=== PATIENT | female | born 1990 | race Two or more races ===

== ENCOUNTER 2017-03-17 10:21 | Emergency (ER) | payer MEDICAID ==
[~2017-03-17] VITALS: Ht 162.6 cm; Wt 113.4 kg
[~2017-03-17 10:21] MED LIST: CLIN300C11 PO
[2017-03-17] MEDS ORDERED: IBUP-1953 PO (10:33)
[2017-03-17] MEDS ORDERED: METH4TAB17 PO (10:33)
--- NOTE | 2017-03-17 11:29 | NUR ---
Pt c/o losing voice, BENITO, and ear aches, had fever 1 week ago and felt throat "tightening" but was cleared by her MD for infection then. Back today, high pitched voice and crackling. Pt denies dizziness, CP, SOB, n/v, no other complaints, no distress noted.
--- NOTE | 2017-03-17 11:54 | NUR ---
Gave pt d/c instructions, verbalized understanding.
== END 2017-03-17 11:56 | disposition home or self-care (01) ==
LOC: ER 10:21
DX: J04.0 Acute laryngitis (principal); Z88.1 Allergy status to other antibiotic agents
CPT/HCPCS: 36415; 86403; 87070; A4663

== ENCOUNTER 2017-04-05 20:58 | Emergency (ER) | payer OTHER ==
[~2017-04-05] VITALS: Ht 162.6 cm; Wt 114.3 kg
[~2017-04-05 20:58] MED LIST changes: +IBUP-1953 PO; +METH4TAB17 PO
--- NOTE | 2017-04-05 21:13 | NUR ---
Dr. Adkins at bedside for MSE
--- NOTE | 2017-04-05 21:25 | NUR ---
xray at bedside.
[2017-04-05] MEDS ORDERED: IBUPROFEN 600 MG TABLET PO ONE (21:45)
[2017-04-05] MEDS ORDERED: IBUPROFEN 600 MG TABLET ONE (21:52)
--- NOTE | 2017-04-05 21:56 | NUR ---
Pt stable for discharge per Dr. Adkins. Pt given ACI. Pt verbalized understanding of dc instructions. Pt ambulated out of er with steady gait.
[2017-04-05 21:58] VITALS: BP 140/80
== END 2017-04-05 22:00 | disposition home or self-care (01) ==
LOC: ER 20:59
DX: M25.562 Pain in left knee (principal); E66.9 Obesity, unspecified
CPT/HCPCS: A4663

== ENCOUNTER 2017-04-09 09:32 | Emergency (ER) | payer MEDICAID ==
[~2017-04-09] VITALS: Ht 160 cm; Wt 79.4 kg
--- NOTE | 2017-04-09 10:02 | NUR ---
Pt seen for sore throat. Patient discharged home in stable conditon. Written and verbal after care instructions given. Patient verbalizes understanding of instructions.
[2017-04-09 10:03] VITALS: BP 112/64
== END 2017-04-09 10:04 | disposition home or self-care (01) ==
LOC: ER 09:32
DX: J02.9 Acute pharyngitis, unspecified (principal); E11.9 Type 2 diabetes mellitus without complications; Z88.1 Allergy status to other antibiotic agents
CPT/HCPCS: 99283; A4663

== ENCOUNTER 2017-04-29 19:31 | Emergency (ER) | payer OTHER ==
[~2017-04-29] VITALS: Ht 162.6 cm; Wt 112.0 kg
--- NOTE | 2017-04-29 19:55 | NUR ---
Patient discharged to home in stable conditon. Written and verbal after care instructions given. Patient verbalizes understanding of instructions.
== END 2017-04-29 19:56 | disposition home or self-care (01) ==
LOC: ER 19:33
DX: L03.211 Cellulitis of face (principal); Z88.1 Allergy status to other antibiotic agents
CPT/HCPCS: A4663; J1885

== ENCOUNTER 2023-03-09 18:48 | Emergency (ER) | payer MEDICAID ==
[~2023-03-09] VITALS: Ht 162.6 cm; Wt 96.2 kg
[~2023-03-09 18:48] MED LIST changes: -CLIN300C11 PO; +CLIN300C12 PO
[2023-03-09 19:53] LABS: BASOPHILS % (AUTO) 0.7 % (0.0-2.0); EOSINOPHILS # (AUTO) 0.1 K/uL (0.0-0.7); EOSINOPHILS % (AUTO) 1.7 % (0.0-7.0); HEMATOCRIT 40.5 % (31.2-41.9); HEMOGLOBIN 13.4 g/dL (10.9-14.3); LYMPHOCYTES % (AUTO) 33.5 % (20.5-51.5); MEAN CORPUSCULAR HEMOGLOBIN 31.4 uug (24.7-32.8); MEAN CORPUSCULAR HGB CONC 33 g/dL (32.3-35.6); MEAN CORPUSCULAR VOLUME 95.2 fL (75.5-95.3); MONOCYTES # (AUTO) 0.4 K/uL (0.1-1.30); MONOCYTES % (AUTO) 6.3 % (0.0-11.0); NEUTROPHILS # (AUTO) 3.5 K/uL (1.8-8.9); NEUTROPHILS % (AUTO) 57.8 % (38.5-71.5); PLATELET COUNT (AUTO) 230 K/uL (179-408); RED BLOOD CELL COUNT(AUTO) 4.25 MIL/uL (3.63-4.92); RED CELL DISTRIBUTION WIDTH 14.1 % (12.3-17.7)
[2023-03-09 20:02] LABS: DIFFERENTIAL COMMENT 1
[2023-03-09 20:06] LABS: CALCIUM 8.5 mg/dL (8.5-10.1); CREATININE 0.8 mg/dL (0.6-1.3); POTASSIUM 3.9 mmol/L (3.5-5.1)
[2023-03-09 20:12] LABS: ALBUMIN 3.8 g/dL (3.4-5.0); BILIRUBIN,DIRECT 0.1 mg/dL (0.0-0.2); BILIRUBIN,TOTAL 0.5 mg/dL (0.2-1.0); TOTAL PROTEIN, SERUM 6.9 g/dL (6.4-8.2)
[2023-03-09 20:12] LABS: *BLOOD, URINE 2+ (NEGATIVE); *CLARITY,URINE CLEAR (CLEAR); *COLOR,URINE YELLOW (YELLOW); *KETONES,URINE 1+ (NEGATIVE); *PROTEIN,URINE TRACE (NEGATIVE); *UROBILINOGEN,URINE 0.2 E.U./dl (NORMAL); LEUKOCYTE ESTERASE ,URINE 1+ (NEGATIVE); NITRITE, URINE NEGATIVE (NEGATIVE); UGLUCOSE NEGATIVE (NEGATIVE)
[2023-03-09 20:17] LABS: *BILIRUBIN,URIN 1+ (NEGATIVE)
[2023-03-09 20:18] LABS: *URINE HCG, QUAL NEGATIVE (NEGATIVE)
[2023-03-09] MEDS ORDERED: SWABABLE VALVE TRANSFER SET EA MC ONE (21:56)
[2023-03-09] MEDS ORDERED: IOHEXOL 300MG/ML 100 ML INFUS..BTL ONE (21:56)
[2023-03-09] MEDS ORDERED: IV NORMAL SALINE 250 ML IV ONE (21:56)
[2023-03-09 22:31] LABS: SQUAMOUS EPITHELIAL CELL,UR MANY /HPF (NONE SEEN)
[2023-03-09 22:33] LABS: BACTERIA,URINE MODERATE /HPF (NONE SEEN)
[2023-03-09 23:09] VITALS: BP 121/60; O2SAT 98
== END 2023-03-09 23:09 | disposition home or self-care (01) ==
LOC: ER 18:48
DX: R10.84 Generalized abdominal pain (principal); F17.210 Nicotine dependence, cigarettes, uncomplicated; Z88.8 Allergy status to other drugs, medicaments and biological substances; Z79.1 Long term (current) use of non-steroidal anti-inflammatories (NSAID); Z79.2 Long term (current) use of antibiotics; Z79.899 Other long term (current) drug therapy
CPT/HCPCS: 99285; 74177; 80076; 80048; 81001; 84703; 83690; 85025; 36415; Q9967; A4663